=== PATIENT | female | born 1935 | race Caucasian/White ===

== ENCOUNTER 2020-06-30 17:16 | Emergency (ER) | payer MEDICARE, BC ==
[2020-06-30 18:12] VITALS: BP 179/69; PULSE 96
--- NOTE | 2020-06-30 18:33 | EDM.PDOC ---
ED HPI GENERAL MEDICAL PROBLEM - General Chief Complaint: Back Pain or Injury Stated Complaint: [facility] Time Seen by Provider: 06/30/20 18:13 Source of Information: Reports: Patient, RN Notes Reviewed History Limitations: Reports: No Limitations - History of Present Illness INITIAL COMMENTS - FREE TEXT/NARRATIVE: Patient is an 85-year-old female who presents to the ED via [place] [facility] for the evaluation of her mid to upper back pain. Patient was given 100 mcg of fentanyl in route to the ER. Patient states that she fell at home, she does not really remember what happened prior to the injury, but she notes she was not dizzy or lightheaded. Patient does not think she was on the ground long, but she was found by her . She is alert and oriented x4, she knows where she is at, and states "I would like to go home". She does not think she hit her head, she is not complaining of any neck pain. She is complaining mostly of upper back pain between her shoulder blades. Patient's not on any blood thinners. She denies any other sick-like symptoms, fever/chills, cough or shortness of breath, nausea/vomiting/diarrhea. Treatments PARTS ADVISOR: Reports: Other (see below) Other Treatments PARTS ADVISOR: fentanyl Lower Back Pain Score (Numeric/FACES): 10 - Related Data Allergies Allergy/AdvReac Type Severity Reaction Status Date / Time No Known Allergies Allergy Verified 06/30/20 18:12 Home Meds: Home Meds traZODone 50 mg PO DAILY 03/09/16 [History] Hydrocodone/Acetaminophen [Hydrocodone-Acetamin 5-325 mg] 1 each PO Q6H #28 tablet 06/30/20 [Rx] Past Medical History HEENT History: Reports: Cataract, Impaired Vision, Macular Degeneration Other HEENT History: wears eyeglasses Cardiovascular History: Reports: Other (See Below) Other Cardiovascular History: requires carotid endarterectomy--scheduled to see grinder gear on Friday. Gastrointestinal History: Reports: GERD Genitourinary History: Reports: Other (See Below) Other Genitourinary History: over active bladder FAMILY LAW PAR[place]GAL History: Reports: Musculoskeletal History: Reports: Back Pain, Chronic, Fracture, Osteoporosis - Infectious Disease History Infectious Disease History: Reports: Chicken Pox, Measles, Shingles - Past Surgical History HEENT Surgical History: Reports: Cataract Surgery Musculoskeletal Surgical History: Reports: Knee Replacement Social & Family History - Family History Family Medical History: Noncontributory - Tobacco Use Smoking Status *Q: Never Smoker - Caffeine Use Caffeine Use: Reports: Coffee ED ROS GENERAL - Review of Systems Review Of Systems: Comprehensive ROS is negative, except as noted in HPI. ED EXAM, UPPER BACK/NECK PAIN - Physical Exam Exam: See Below Exam Limited By: No Limitations General Appearance: Alert, WD/WN, No Apparent Distress Throat/Mouth Exam: Normal Inspection, Normal Lips, Normal Teeth, Normal Gums, Normal Oropharynx, Normal Voice, No Airway Compromise Head Exam: Atraumatic, Normocephalic Neck Exam: Non-Tender, Full Range of Motion, Normal Alignment, Normal Inspection Nexus Criteria: No: Posterior, Midline Cervical Tenderness, Evidence of Intoxication, Altered Level of Consciousness, Focal Neurological Deficit, Painful Distraction Injuries Cardiovascular/Respiratory: Regular Rate, Rhythm, No M/R/G, Normal Peripheral Pulses, No JVD, Normal Breath Sounds, No Respiratory Distress GI/Abdominal: Normal Bowel Sounds, Soft, Non-Tender, No Distention, No Mass Back Exam: Normal Inspection, Paraspinal Tenderness (she is tender to spine between her shoulder blades mainly) Neurologic: production control supervisor II-XII nml As Tested, No Motor/Sensory Deficits, Alert, Normal Mood/Affect, Oriented x 3 Psychiatric: Normal Affect, Normal Mood Skin Exam: Normal Color, Warm/Dry Course - Vital Signs Last Recorded V/S: Last Vital Signs Temp 99.2 F 06/30/20 18:05 Pulse 96 06/30/20 18:05 Resp 20 06/30/20 18:05 BP 179/69 H 06/30/20 18:05 Pulse Ox 100 06/30/20 18:05 - Orders/Labs/Meds Orders: Active Orders 24 hr Category Date Time Status CBC WITH AUTO DIFF [HEME] Stat Lab 06/30/20 18:30 Ordered Labs: Laboratory Tests 06/30/20 06/30/20 Range/Units 18:55 18:55 WBC 11.75 H (3.98-10.04) K/mm3 RBC 4.02 (3.98-5.22) M/mm3 Hgb 12.2 (11.2-15.7) gm/dl Hct 38.0 (34.1-44.9) % MCV 94.5 (79.4-94.8) fl MCH 30.3 (25.6-32.2) pg MCHC 32.1 L (32.2-35.5) g/dl RDW Std Deviation 46.8 H (36.4-46.3) fL Plt Count 205 (182-369) K/mm3 MPV 9.8 (9.4-12.3) fl Neut % (Auto) 77.9 H (34.0-71.1) % Lymph % (Auto) 13.8 L (19.3-51.7) % Grainger % (Auto) 6.7 (4.7-12.5) % Eos % (Auto) 0.9 (0.7-5.8) Baso % (Auto) 0.3 (0.1-1.2) % Neut # (Auto) 9.14 H (1.56-6.13) K/mm3 Lymph # (Auto) 1.62 (1.18-3.74) K/mm3 Grainger # (Auto) 0.79 H (0.24-0.36) K/mm3 Eos # (Auto) 0.11 (0.04-0.36) K/mm3 Baso # (Auto) 0.04 (0.01-0.08) K/mm3 Sodium 143 (136-145) mEq/L Potassium 4.0 (3.5-5.1) mEq/L Chloride 107 (98-107) mEq/L Carbon Dioxide 25 (21-32) mEq/L Anion Gap 15.0 (5-15) BUN 17 (7-18) mg/dL Creatinine 1.1 H (0.55-1.02) mg/dL Est Cr Clr Drug Dosing TNP Estimated GFR (MDRD) 47 (>60) mL/min BUN/Creatinine Ratio 15.5 (14-18) Glucose 104 (83-115) mg/dL Calcium 8.8 (8.5-10.1) mg/dL Magnesium 1.9 (1.8-2.4) mg/dl Total Bilirubin 0.3 (0.2-1.0) mg/dL AST 25 (15-37) U/L ALT 22 (14-59) U/L Alkaline Phosphatase 53 (46-116) U/L Total Protein 6.9 (6.4-8.2) g/dl Albumin 3.3 L (3.4-5.0) g/dl Globulin 3.6 gm/dL Albumin/Globulin Ratio 0.9 L (1-2) Meds: Medications Discontinued Medications Generic Name Dose Route Start Last Admin Trade Name Gala PRN Reason Stop Dose Admin Hydromorphone HCl 0.5 mg 06/30/20 19:27 Dilaudid IVPUSH 06/30/20 19:28 ONETIME ONE - Re-Assessments/Exams Free Text/Narrative Re-Assessment/Exam: 06/30/20 18:33 Patient presents to the ED for the evaluation of her fall. Basic labs to be obtained, along with a head CT and chest CT for evaluation of injury. 06/30/20 19:27 CT is back, and is negative. The patient's chest CT does demonstrate a compression deformity at T3, age of this is indeterminate. MRI would need to be assessed to look for bone marrow edema. Applied calcified nodules within the lung. Otherwise diffuse emphysematous changes. Departure - Departure Time of Disposition: 19:37 Disposition: Home, Self-Care 01 Condition: Good Clinical Impression: Compression fracture of T3 vertebra Qualifiers: Encounter type: initial encounter Qualified Code(s): S22.030A - Wedge compression fracture of third thoracic vertebra, initial encounter for closed fracture Fall Qualifiers: Encounter type: initial encounter Qualified Code(s): W19.XXXA - Unspecified fall, initial encounter - Discharge Information *PRESCRIPTION DRUG MONITORING PROGRAM REVIEWED*: Yes *COPY OF PRESCRIPTION DRUG MONITORING REPORT IN PATIENT ASHER: No Prescriptions: Hydrocodone/Acetaminophen [Hydrocodone-Acetamin 5-325 mg] 1 each PO Q6H #28 tablet Instructions: Thoracic Spine Fracture, [id number] Forms: ED Department Discharge Additional Instructions: You have been evaluated in the ED for your back pain after your fall. Your CT demonstrated a compression fracture of your t3 vertebrae. You will likely need an MRI of your thoracic spine, to further evaluate the injury. You will need to follow-up with your regular provider or orthopedics to obtain this MRI. Please use ice as tolerated to the affected area. You may take Tylenol 500 mg or ibuprofen 600mg q6 hrs for pain relief. Please do so until you have a tolerable level of pain with activity. Do not exceed 4000mg Tylenol, Do not exceed 3200mg ibuprofen in a 24 hour time period. You were given a prescription for a strong pain medication, hydrocodone/acetaminophen 5/325, please take 1 tab every 6 hours as needed for pain not relieved by Tylenol or ibuprofen alone. Please note this does contain Tylenol in it, so do not take more than 4000 mg in a 24-hour time span. These m edications can be addictive, so please take as few as possible to achieve adequate pain control. These meds can also be quite constipating, recommend that you increase your oral fluid intake and take a stool softener like MiraLAX while taking these medications. Please call Ortho for follow-up and further evaluation, [facility] number in [place] is [phone]. Please call and set up an appointment as soon as possible for further management. Please return to ED if your symptoms should change or worsen. Sepsis Event Note (ED) - Evaluation Sepsis Screening Result: No Definite Risk - Focused Exam Vital Signs: Vital Signs Temp Pulse Resp BP Pulse Ox 06/30/20 18:05 99.2 F 96 20 179/69 H 100 - My Orders Last 24 Hours: My Active Orders 06/30/20 18:30 CBC WITH AUTO DIFF [HEME] Stat - Assessment/Plan Last 24 Hours: My Active Orders 06/30/20 18:30 CBC WITH AUTO DIFF [HEME] Stat
--- NOTE | 2020-06-30 19:09 | CT ---
Head CT Technique: Multiple axial sections through the brain were obtained. Intravenous contrast was not utilized. Comparison: No prior intracranial imaging is available. Findings: Ventricles along the basal cisterns and sulci over the convexities are mildly prominent. Minimal areas of diminished density are noted within portions of periventricular white matter which is most likely due to small vessel ischemic demyelination change. Atherosclerotic calcification is seen within the carotid siphon. No evidence of intracranial hemorrhage. No midline shift or mass-effect is seen. Bone window settings were reviewed. Visualized paranasal sinuses shows minimal mucosal thickening within the posterior ethmoid sinus. Nothing acute is appreciated within the visualized sinuses. Mastoid sinuses show nothing acute. No acute calvarial abnormality is identified. Impression: 1. Senescent change as noted above. 2. No acute intracranial abnormality is appreciated. Diagnostic code #2 This report was dictated in MDT
--- NOTE | 2020-06-30 19:12 | CT ---
CT chest Technique: Multiple axial sections through the chest were obtained. Intravenous contrast was not utilized. Comparison: No prior chest CT is available, no prior chest x-ray is available. Findings: Diffuse emphysematous changes are seen within both lungs. Calcified granuloma is noted within the right upper lung anteriorly measuring 7 mm. Additional calcified nodule is noted within the right lower lung measuring 1.2 cm. 2 adjacent smaller calcified nodules are seen around this larger nodule. Linear areas of scarring is seen within both lung bases. No acute parenchymal change is appreciated. No pleural effusions are noted. Aorta shows diffuse atherosclerotic calcification with no aneurysm. Mediastinum shows no adenopathy. Mild coronary artery calcification is noted. No pericardial thickening is seen. Visualized upper abdominal structures shows small cyst within the left kidney. Calcified granulomas are noted within the spleen. Bone window settings were reviewed. There is a moderate compression deformity being seen within approximately T3. Age of this is indeterminate and could be acute. No other acute finding is seen within the spine. There is deformity of the manubrium compatible with old fracture which appears healed. No definite rib fracture is appreciated. Impression: 1. Compression deformity at T3, age of this is indeterminate. MRI would be needed to look for bone marrow edema if further imaging of this finding is needed. 2. Calcified nodules within the lungs as well as calcified granulomas within the spleen. 3. Diffuse emphysematous changes seen. Linear scarring within both lung bases. 4. No other acute finding is appreciated. Diagnostic code #3 This report was dictated in MDT
[2020-06-30] MEDS ORDERED: HYDROmorphone 0.5 MG/0.5 ML Syringe IVPUSH ONE (19:27)
== END 2020-06-30 20:02 | disposition home or self-care (01) ==
LOC: JD.ED 17:16
DX: S22.039A Unspecified fracture of third thoracic vertebra, initial encounter for closed fracture (principal); Z79.899 Other long term (current) drug therapy; W19.XXXA Unspecified fall, initial encounter; Y92.009 Unspecified place in unspecified non-institutional (private) residence as the place of occurrence of the external cause
CPT/HCPCS: 36415; 70450; 70450-26; 71250; 71250-26; 80053; 83735; 85025; 99283; 99284-25

== ENCOUNTER 2021-05-19 01:43 | Emergency (ER) | payer MEDICARE, BC ==
[2021-05-19 01:57] VITALS: BP 190/75; PULSE 100
[2021-05-19] MEDS ORDERED: HYDROmorphone 0.5 MG/0.5 ML Syringe IVPUSH ONE (02:10)
[2021-05-19] MEDS ORDERED: Ondansetron 4 MG/2 ML SDV IVPUSH ONE (02:10)
[2021-05-19] MEDS ORDERED: Sodium Chloride 0.9% 1,000 ML IV SCH (02:15)
--- NOTE | 2021-05-19 02:16 | EDM.PDOC ---
ED HPI GENERAL MEDICAL PROBLEM - General Chief Complaint: Abdominal Pain Stated Complaint: RT SIDE PAIN Time Seen by Provider: 05/19/21 01:52 Source of Information: Reports: Patient, Family () History Limitations: Reports: Other ( answered most questions, stating that the patient likely has dementia) - History of Present Illness INITIAL COMMENTS - FREE TEXT/NARRATIVE: Mrs. Headley is a very pleasant 86-year-old woman who is now brought to the ED by her , for evaluation of sharp, sudden onset right-sided abdominal pain that began around 20:00 last night. She reports that the pain is constant, and she has not identified any modifiers. She has had some nausea, but no vomiting. No recent constipation or diarrhea. She denies urinary symptoms. The patient did not take any [id number] or home remedies prior to coming to the ED. The patient states that she has had similar, although less severe, symptoms, perhaps 3 times over the past 5 years. She states that she did not seek prior medical evaluation for any of them, as they typically lasted for only about an hour. Here in the ED tonight, the patient's initial BP is found to be significantly elevated at 190/75, otherwise, she is hemodynamically stable, afebrile, saturating 95% on room air. She appears to be uncomfortable, but in no acute distress. Prior to tonight, the patient denies having a recent fever, chills, sore throat, ear pain, nasal or sinus congestion, cough, dyspnea, chest pain, palpitations, nausea, vomiting, constipation, diarrhea, abdominal pain, urinary symptoms, recent weight gain or weight loss, recent bloody bowel movements or black bowel movements, recent joint aches, headaches, or rashes. The patient's PCP is Dr. Helio Goncalves, at the [facility], in [place]. She has not received a COVID vaccination. Right Lower Abdomen Pain Score (Numeric/FACES): 9 - Related Data Allergies Allergy/AdvReac Type Severity Reaction Status Date / Time No Known Allergies Allergy Verified 05/19/21 01:53 Home Meds: Home Meds Memantine [Namenda] 10 mg PO BID 05/19/21 [History] Ondansetron [Zofran ODT] 1 tab PO Q8H PRN #14 tab.dis 05/19/21 [Rx] Tamsulosin [Flomax] 1 cap PO QAM PRN #10 cap.er 05/19/21 [Rx] oxyCODONE HCl/Acetaminophen [Percocet 2.5-325 mg Tablet] 1 - 2 tab PO Q6H PRN #20 tablet 05/19/21 [Rx] Past Medical History HEENT History: Reports: Impaired Vision (blind right eye), Macular Degeneration Gastrointestinal History: Reports: GERD (Untreated. Hx of Schatzki ring.) Musculoskeletal History: Reports: Fracture (C3, right hip? - neither required surgery), Osteoarthritis, Osteoporosis Neurological History: Reports: Other (See Below) (Dementia - suspected, not diagnosed) - Infectious Disease History Infectious Disease History: Reports: Chicken Pox, Measles, Shingles - Past Surgical History HEENT Surgical History: Reports: Cataract Surgery (right only), Oral Surgery (dental extractions), Other (See Below) (Right corneal transplant x 2) GI Surgical History: Reports: Appendectomy, EGD (x 2) Female Surgical History: Reports: Hysterectomy Musculoskeletal Surgical History: Reports: Knee Replacement (right) Social & Family History - Tobacco Use Years of Tobacco use: 65 Packs/Tins Daily: 1 Tobacco Use Comment: Started smoking 1955 - Caffeine Use Caffeine Use: Reports: Coffee - Alcohol Use Alcohol Use History: No - Recreational Drug Use Recreational Drug Use: No - Living Situation & Occupation Living situation: Reports: , with Spouse Occupation: Retired ED ROS GENERAL - Review of Systems Review Of Systems: Comprehensive ROS is negative, except as noted in HPI. Musculoskeletal: Reports: Back Pain (chronic) ED EXAM, RENAL/ - Physical Exam Exam: See Below Exam Limited By: No Limitations General Appearance: Alert, WD/WN, Mild Distress (Appears uncomfortable) Eye Exam: Bilateral Eye: EOMI, Normal Inspection Ears: Normal External Exam, Hearing Grossly Normal Nose: Normal Inspection Throat/Mouth: Normal Inspection, Normal Lips, Normal Voice, No Airway Compromise Head: Atraumatic, Normocephalic Neck: Normal Inspection, Full Range of Motion Respiratory/Chest: No Respiratory Distress, Lungs Clear, Normal Breath Sounds, No Accessory Muscle Use Cardiovascular: Normal Peripheral Pulses, Regular Rate, Rhythm, No Edema, No Gallop, No JVD, No Murmur, No Rub GI/Abdominal: Normal Bowel Sounds, Soft, No Organomegaly, No Distention, No Abnormal Bruit, No Mass, Tender (Mild generalized tenderness, with the greatest tenderness in the far upper right abdomen, just under the lateral right ribs) Back Exam: Normal Inspection, Full Range of Motion, CVA Tenderness (R). No: CVA Tenderness (L) Extremities: Normal Inspection, Normal Range of Motion, No Pedal Edema, Normal Capillary Refill Neurological: Alert, Normal Cognition, No Motor/Sensory Deficits Psychiatric: Normal Affect Skin Exam: Warm, Dry, Intact, Normal Color, No Rash Course - Vital Signs Last Recorded V/S: Last Vital Signs Temp 36.3 C 05/19/21 01:54 Pulse 100 05/19/21 01:54 Resp 17 05/19/21 01:54 BP 190/75 H 05/19/21 01:54 Pulse Ox 95 05/19/21 01:54 - Orders/Labs/Meds Orders: Active Orders 24 hr Category Date Time Status Abdomen Pelvis wo Cont [CT] Stat Exams 05/19/21 03:03 Taken CORONAVIRUS COVID-19 [facility] [MOLEC] Stat Lab 05/19/21 05:17 Stop Req CORONAVIRUS COVID-19 [facility] [MOLEC] Stat Lab 05/19/21 05:50 Ordered CULTURE URINE [MREF] Stat Lab 05/19/21 02:33 Received Sodium Chloride 0.9% [Normal Saline] 1,000 ml Med 05/19/21 02:15 Active IV ASDIRECTED Medication Orders Sodium Chloride (Normal Saline) 1,000 mls @ 100 mls/hr IV ASDIRECTED ARANZA Last Admin: 05/19/21 02:21 Dose: 100 mls/hr Documented by: LINUS Labs: Laboratory Tests 05/19/21 Range/Units 02:33 Urine Color Yellow (Yellow) Urine Appearance Clear (Clear) Urine pH 5.5 (5.0-8.0) Ur Specific [place] 1.020 (1.005-1.030) Urine Protein Trace H (Negative) Urine Glucose (UA) Negative (Negative) Urine Ketones Trace H (Negative) Urine Occult Blood 2+ H (Negative) Urine Nitrite Negative (Negative) Urine Bilirubin Negative (Negative) Urine Urobilinogen 0.2 (0.2-1.0) Ur Leukocyte Esterase 2+ H (Negative) Urine RBC 5-10 H (0-5) /hpf Urine WBC 10-20 H (0-5) /hpf Ur Squamous Epith Cells Not seen (0-5) /hpf Urine Bacteria Rare (FEW) /hpf Urine Mucus Rare (FEW) /hpf Meds: Medications Generic Name Dose Route Start Last Admin Trade Name Gala PRN Reason Stop Dose Admin Sodium Chloride 1,000 mls @ 100 mls/hr 05/19/21 02:15 05/19/21 02:21 Normal Saline IV 100 mls/hr ASDIRECTED ARANZA Administration Discontinued Medications Generic Name Dose Route Start Last Admin Trade Name Gala PRN Reason Stop Dose Admin Hydromorphone HCl 0.5 mg 05/19/21 02:10 05/19/21 02:22 Hydromorphone 0.5 Mg/0.5 Ml Syringe IVPUSH 05/19/21 02:11 0.5 mg ONETIME ONE Administration Ondansetron HCl 4 mg 05/19/21 02:10 05/19/21 02:21 Ondansetron 4 Mg/2 Ml Sdv IVPUSH 05/19/21 02:11 4 mg ONETIME ONE Administration Tamsulosin HCl 0.4 mg 05/19/21 05:44 Tamsulosin 0.4 Mg Cap.Er PO 05/19/21 05:45 ONETIME ONE - Re-Assessments/Exams Free Text/Narrative Re-Assessment/Exam: 05/19/21 02:11 As above, the patient developed sudden-onset sharp right sided abdominal pain, along with nausea, around 20:00 last night. It is constant, and she has not identified any modifiers. No associated vomiting, diarrhea, or urinary symptoms. She reports prior symptoms approximately 3 times over the past 5 years, but they typically lasted only about 1 hour, and she did not seek medical evaluation for any of them. On examination, the patient reports mild generalized abdominal tenderness, with the greatest tenderness in the far upper right abdomen, just under the lateral right ribs. She also has right CVA tenderness, strongly suggesting that her symptoms are due to a ureterolith. I have ordered a urinalysis. If there is blood in the urine, I will order a CT of the abdomen and pelvis without contrast, but if there is no blood in the urine, then I will order a work-up to include blood work and a CT of the abdomen and pelvis with oral and IV contrast. In the meantime, the patient will be given some IV Dilaudid, IV Zofran, and judicious IV fluid. 05/19/21 03:03 The patient's urinalysis is remarkable for 2+ occult blood with 5-10 RBCs, 2+ leukocyte esterase with 10-20 WBCs, nitrate negative with rare bacteria, and no squamous epithelial cells seen. Based on the above, I have ordered a urine culture, however, I am not going to start the patient on antibiotics at this time. I have ordered a CT of the abdomen and pelvis without contrast to evaluate for a right ureterolith. 05/19/21 05:[address] of the abdomen and pelvis without contrast are still pending, however, in my review of the CT, there appears to be a large ureterolith at the right UVJ. If that is the case, the patient may require transfer to [place]. For that reason, I have ordered a swab for the SARS-CoV-2 virus. 05/19/21 05:34 CT of the abdomen and pelvis without contrast is read by Caleb as: 1. 4.9 mm right ureterovesical junction stone with associated moderate right hydroureteronephrosis. 2. Post hysterectomy. 3. Trace nonspecific free pelvic fluid. 05/19/21 05:39 Test results discussed with the patient's (the patient is sleeping). Although large, at 4.9 mm at the UVJ, the patient will likely pass the stone on her own. I will discharge her home with the recommendation that she take OTC ibuprofen around the clock, and I will prescribe some Percocet that she can take for breakthrough pain, along with tamsulosin and Zofran. She should stay adequately hydrated and strain all of her urine. If she continues to have pain after 1 week, she should follow-up with Dr. Mayer in [place]. Departure - Departure Time of Disposition: 05:41 Disposition: Home, Self-Care 01 Condition: Good Clinical Impression: Ureterolithiasis - Discharge Information *PRESCRIPTION DRUG MONITORING PROGRAM REVIEWED*: Not Applicable *COPY OF PRESCRIPTION DRUG MONITORING REPORT IN PATIENT ASHER: Not Applicable Prescriptions: Tamsulosin [Flomax] 1 cap PO QAM PRN #10 cap.er PRN Reason: Pain oxyCODONE HCl/Acetaminophen [Percocet 2.5-325 mg Tablet] 1 - 2 tab PO Q6H PRN #20 tablet PRN Reason: Pain (Severe 7-10) Ondansetron [Zofran ODT] 1 tab PO Q8H PRN #14 tab.dis PRN Reason: Nausea/Vomiting Instructions: Kidney Stones Referrals: Helio Goncalves MD [Ordering Only Provider] - David Mayer MD [Ordering Only Provider] - Forms: ED Department Discharge Additional Instructions: You were seen in the emergency room after developing sudden-onset right sided pain, along with nausea. Work-up in the ER included a urinalysis and a CT of your abdomen and pelvis. Your urinalysis had some blood in it, consistent with a kidney stone, but no sign of an infection. Nevertheless, sample of your urine has been sent for culture. The CT scan found a 4.9 mm stone in your lower right ureter, just above your bladder. Based on the size and location of the stone, you will most likely pass it on your own. We recommend that you stay adequately hydrated. It does not really matter what type of fluid you drink. Strain all of your urine. If you capture the stone, take it to your doctor for analysis. We recommend you take [id number] ibuprofen, 2 to 3 tablets (400-600 mg) up to every 8 hours, with food, [id number], initially, as needed for discomfort. A prescription for the opioid pain reliever Percocet has been provided to you. You may take 1 to 2 tablets of Percocet up to every 6 hours, as needed for pain not relieved by ibuprofen. If you take Percocet, do not drive for 12 hours after taking. Percocet may cause constipation, so consider taking a stool softener. You have been started on the anti-spasm medicine tamsulosin, and a prescription for tamsulosin has been provided to you. Take 1 tablet of tamsulosin every morning, starting tomorrow morning, 05/20/2021, as needed for pain. You have given a prescription for the anti-nausea medicine Zofran ODT. Dissolve 1 tablet of Zofran ODT on your tongue up to every 8 hours, as needed for nausea/vomiting. If you are still having pain after 1 week, please follow-up with the Urologist Dr. David Mayer, in [place]. If any other problems, please do not hesitate to return to the ER. Sepsis Event Note (ED) - Evaluation Sepsis Screening Result: No Definite Risk - Focused Exam Vital Signs: Vital Signs Temp Pulse Resp BP Pulse Ox 05/19/21 01:54 36.3 C 100 17 190/75 H 95 - My Orders Last 24 Hours: My Active Orders 05/19/21 02:15 Sodium Chloride 0.9% [Normal Saline] 1,000 ml IV ASDIRECTED 05/19/21 02:33 CULTURE URINE [MREF] Stat 05/19/21 03:03 Abdomen Pelvis wo Cont [CT] Stat 05/19/21 05:17 CORONAVIRUS COVID-19 [facility] [MOLEC] Stat 05/19/21 05:50 CORONAVIRUS COVID-19 [facility] [MOLEC] Stat - Assessment/Plan Last 24 Hours: My Active Orders 05/19/21 02:15 Sodium Chloride 0.9% [Normal Saline] 1,000 ml IV ASDIRECTED 05/19/21 02:33 CULTURE URINE [MREF] Stat 05/19/21 03:03 Abdomen Pelvis wo Cont [CT] Stat 05/19/21 05:17 CORONAVIRUS COVID-19 [facility] [MOLEC] Stat 05/19/21 05:50 CORONAVIRUS COVID-19 [facility] [MOLEC] Stat
[2021-05-19] MEDS ORDERED: Tamsulosin 0.4 MG Cap.ER PO ONE (05:44)
--- NOTE | 2021-05-19 09:02 | CT ---
CT abdomen and pelvis Technique: Multiple axial sections were obtained from above the dome of the diaphragm inferiorly through the pubic symphysis. Intravenous and oral contrast were not utilized. Study has been performed as a ureteral stone protocol. Reconstructed coronal and sagittal images were obtained. Comparison: No prior abdomen or pelvis imaging is available. Findings: Dilated right renal pelvis and right ureter are seen. These findings are caused by a distal right ureteral calculus measuring approximately 5.5 mm which occurs slightly proximal to the UVJ. No other ureteral calculi are seen. Three nonobstructing calculi are seen within the left kidney with largest measuring approximately 3 mm.. No calculi are seen within the right kidney. Small cyst is noted within the right kidney measuring 1.9 cm and small cyst is noted within the upper pole of the left kidney measuring 1.8 cm. Additional cyst is noted within the mid to lower left kidney measuring 2.2 cm in size. Minimal hyperdense lesion is seen within the upper left kidney measuring 4 mm in size most likely representing a small hemorrhagic cyst. Visualized lung bases show slight basilar scarring and emphysematous change. Noncontrast appearance of the liver shows no discrete abnormality. Spleen size is normal. Spleen contains calcified granulomas. Adrenal gland on the left side is mildly prominent likely representing slight hyperplasia. Lesser findings are seen within the right adrenal gland. Pancreas shows no discrete abnormality. Gallbladder contains no calcified gallstones. Inferior abdominal aorta shows minimal aneurysmal dilatation with AP dimension of about 2.6 cm. Atherosclerotic calcification is seen within the aorta and iliac vessels. No retroperitoneal adenopathy is seen. No mesenteric abnormalities are seen. No pelvic mass or adenopathy is noted. Minimal free fluid is seen within the pelvis. Bone window settings were reviewed which show mild scattered degenerative change within the spine. Sacroiliac joints show nothing acute. Minimal joint space narrowing is noted within both hips. Impression: 1. Obstructing stone within the distal right ureter occurring proximal to the UVJ and measuring 5.5 mm. 2. Several cysts within the kidney with one small hemorrhagic cyst in the left kidney. Three nonobstructing calculi are seen within the left kidney. 3. 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 4. Other findings as noted above which are most likely nonacute. Diagnostic code #3 I minimally disagree with preliminary report from [facility], finalized on 08/14/21, 6:29 AM CDT, code 2
== END 2021-05-19 06:11 | disposition home or self-care (01) ==
LOC: JD.ED 01:43
DX: N13.2 Hydronephrosis with renal and ureteral calculous obstruction (principal); F17.200 Nicotine dependence, unspecified, uncomplicated; Z20.822 Contact with and (suspected) exposure to COVID-19; Z79.899 Other long term (current) drug therapy
CPT/HCPCS: 74176; 81001; 87086; 96374; 96375; 99284; A9270; J1170; J2405; J7030; U0002

== ENCOUNTER 2023-01-27 14:44 | Emergency (ER) | payer BC, MEDICARE ==
[2023-01-27] MEDS ORDERED: Ondansetron 4 MG Tab.DIS PO ONE (15:08)
[2023-01-27 16:34] VITALS: BP 144/89; PULSE 88
== END 2023-01-27 16:25 | disposition home or self-care (01) ==
LOC: JD.ED 14:44
DX: T17.320A Food in larynx causing asphyxiation, initial encounter (principal); F17.210 Nicotine dependence, cigarettes, uncomplicated
CPT/HCPCS: 71046; 99283; A9270

== ENCOUNTER 2023-04-21 03:23 | Emergency (ER) | payer MEDICARE, OTHER ==
[2023-04-21 04:58] LABS: BASOPHILS ABSOLUTE AUTO 0.03 K/mm3 (0.01-0.08); BASOPHILS PERCENT AUTO 0.3 % (0.1-1.2); EOSINOPHILS ABSOLUTE AUTO 0.12 K/mm3 (0.04-0.36); EOSINOPHILS PERCENT AUTO 1.1 (0.7-5.8); HEMATOCRIT 35.4 % (34.1-44.9); HEMOGLOBIN 11.4 gm/dl (11.2-15.7); IMMATURE GRAN ABSOLUTE AUTO 0.03 K/mm3 (0.00-0.10); IMMATURE GRAN PERCENT AUTO 0.3 % (<=1.0); LYMPHOCYTES ABSOLUTE AUTO 1.17 K/mm3 (1.18-3.74); LYMPHOCYTES PERCENT AUTO 10.3 % (19.3-51.7); MEAN CORPUSCULAR HEMOGLOBIN 29.5 pg (25.6-32.2); MEAN CORPUSCULAR HGB CONC 32.2 g/dl (32.2-35.5); MEAN CORPUSCULAR VOLUME 91.5 fl (79.4-94.8); MEAN PLATELET VOLUME 10.1 fl (9.4-12.3); MONOCYTES ABSOLUTE AUTO 0.77 K/mm3 (0.24-0.36); MONOCYTES PERCENT AUTO 6.8 % (4.7-12.5); NEUTROPHILS ABSOLUTE AUTO 9.25 K/mm3 (1.56-6.13); NEUTROPHILS PERCENT AUTO 81.2 % (34.0-71.1); PLATELET COUNT,PLT 247 K/mm3 (182-369); RED BLOOD CELL COUNT 3.87 M/mm3 (3.98-5.22); WHITE BLOOD CELL COUNT,WBC 11.37 K/mm3 (3.98-10.04)
[2023-04-21 05:28] LABS: A/G RATIO 0.5 (1-2); ALBUMIN 2.7 g/dl (3.4-5.0); ANION GAP 10.2 (5-15); BILIRUBIN TOTAL 0.3 mg/dL (0.2-1.0); BUN/CREATININE RATIO 14.2 (14-18); CALCIUM 8.3 mg/dL (8.5-10.1); CREATININE 1.2 mg/dL (0.55-1.02); EST CRCL DRUG DOSING (CG) 28.17 mL/min; POTASSIUM,K 3.2 mEq/L (3.5-5.1); PROTEIN TOTAL,TP 7.8 g/dl (6.4-8.2); TSH 2.954 uIU/mL (0.358-3.74)
[2023-04-21 06:12] LABS: APPEARANCE,URINE SLT CLOUDY (Clear); BILIRUBIN,URINE NEGATIVE (Negative); COLOR,URINE LIGHT YELLOW (Yellow); GLUCOSE,URINE NEGATIVE (Negative); KETONES,URINE NEGATIVE (Negative); LEUKOCYTE ESTERASE,URINE TRACE (Negative); NITRITE,URINE POSITIVE (Negative); OCCULT BLOOD,URINE NEGATIVE (Negative); PROTEIN,URINE NEGATIVE (Negative); UROBILINOGEN,URINE 0.2 (0.2-1.0)
[2023-04-21 06:46] LABS: BACTERIA,URINE MODERATE /hpf (FEW); MUCUS,URINE NOT SEEN /hpf (FEW); RBC,URINE 0-5 /hpf (0-5); SQUAMOUS EPITHELIAL CELLS,UR 0-5 /hpf (0-5)
[2023-04-21] MEDS ORDERED: Furosemide 40 MG/4 ML VIAL IVPUSH ONE (09:32)
[2023-04-21] MEDS ORDERED: Sulfamethoxazole/Trimethoprim 800-160 MG Tab PO ONE (10:08)
[2023-04-21 11:52] VITALS: BP 166/73; PULSE 117
== END 2023-04-21 11:38 | disposition home or self-care (01) ==
LOC: JD.ED 03:23
DX: J81.1 Chronic pulmonary edema (principal); R09.02 Hypoxemia; N39.0 Urinary tract infection, site not specified; M19.90 Unspecified osteoarthritis, unspecified site; Z86.16 Personal history of COVID-19
CPT/HCPCS: 36415; 71045; 71046; 80053; 81001; 83880; 84443; 84484; 85025; 93005; 96374; 99285; A9270; J1940; 93010; 99284

== ENCOUNTER 2023-09-12 18:32 | Inpatient (IN) | payer MEDICARE, OTHER ==
[2023-09-12] MEDS ORDERED: Sodium Chloride 0.9% 10 ML Syringe FLUSH PRN (19:08)
[2023-09-12 19:42] LABS: HEMATOCRIT 38.8 % (37.0-47.0); HEMOGLOBIN 12.8 gm/dl (12.0-16.0); MEAN CORPUSCULAR HEMOGLOBIN 31.2 pg (28.0-32.0); MEAN CORPUSCULAR VOLUME 94.6 fl (83.0-99.0); MEAN PLATELET VOLUME 9.9 fl (9.4-12.3); PLATELET COUNT,PLT 218 K/mm3 (150-400)
[2023-09-12 19:42] LABS: INFLUENZA A NAA NEGATIVE (NEGATIVE); RESPIRATORY SYNCYTIAL VIR NAA NEGATIVE (NEGATIVE)
[2023-09-12 19:46] LABS: CORONAVIRUS COVID-19 NAA POSITIVE (NEGATIVE)
[2023-09-12 19:58] LABS: APPEARANCE,URINE CLEAR (Clear); BILIRUBIN,URINE NEGATIVE (Negative); COLOR,URINE YELLOW (Yellow); GLUCOSE,URINE NEGATIVE (Negative); KETONES,URINE NEGATIVE (Negative); LEUKOCYTE ESTERASE,URINE 1+ (Negative); NITRITE,URINE NEGATIVE (Negative); OCCULT BLOOD,URINE TRACE-LYSED (Negative); PROTEIN,URINE 1+ (Negative); UROBILINOGEN,URINE 0.2 (0.2-1.0)
[2023-09-12 20:01] LABS: INR 1.01; PROTHROMBIN TIME 10.8 SECONDS (9.7-12.0)
[2023-09-12 20:05] LABS: BAND PERCENT MAN 2 % (0-10); BASOPHILS PERCENT MAN 0 (0.1-1.2); EOSINOPHILS PERCENT MAN 0 % (0.7-5.8); LYMPHOCYTES % ATYPICAL MANUAL 0 %; LYMPHOCYTES PERCENT MAN 10 % (20-40); MONOCYTES PERCENT MAN 7 % (2-10); PLATELET COUNT ESTIMATE ADEQUATE
[2023-09-12 20:07] LABS: LACTIC ACID 1.1 mmol/L (0.4-2.0)
[2023-09-12 20:10] LABS: A/G RATIO 0.7 (1-2); ALBUMIN 3.2 g/dl (3.4-5.0); ANION GAP 15.7 (5-15); BILIRUBIN TOTAL 0.2 mg/dL (0.2-1.0); BUN/CREATININE RATIO 19.3 (14-18); C-REACTIVE PROTEIN 0.9 mg/dL (<1.0); CALCIUM 9.2 mg/dL (8.5-10.1); CREATININE 1.5 mg/dL (0.55-1.02); EST CRCL DRUG DOSING (CG) 21.76 mL/min; POTASSIUM,K 4.7 mEq/L (3.5-5.1); PROTEIN TOTAL,TP 7.8 g/dl (6.4-8.2)
[2023-09-12 20:14] LABS: BACTERIA,URINE MANY /hpf (FEW); MUCUS,URINE FEW /hpf (FEW); SQUAMOUS EPITHELIAL CELLS,UR 0-5 /hpf (0-5)
[2023-09-12] MEDS ORDERED: REMDESIVIR 200 MG in Sodium Chloride 0.9% 250 ML IV ONE (20:25)
[2023-09-12] MEDS ORDERED: Dexamethasone 4 MG Tab PO ONE (20:26)
[2023-09-12] MEDS: cefTRIAXone 2 GM in Sodium Chloride 0.9% 100 ML IV ONE ×2 (20:41→22:57)
[2023-09-12] MEDS: Sodium Chloride 0.9% 1,000 ML IV SCH (22:57)
[2023-09-13 05:29] LABS: BASOPHILS PERCENT AUTO 0.6 % (0.0-1.0); HEMATOCRIT 34.6 % (37.0-47.0); HEMOGLOBIN 11.5 gm/dl (12.0-16.0); IMMATURE GRAN ABSOLUTE AUTO 0.04 K/mm3 (0.00-0.05); IMMATURE GRAN PERCENT AUTO 0.7 % (0.0-0.4); LYMPHOCYTES ABSOLUTE AUTO 0.9 K/mm3 (1.0-4.8); LYMPHOCYTES PERCENT AUTO 17.6 % (24.0-44.0); MEAN CORPUSCULAR HEMOGLOBIN 31.3 pg (28.0-32.0); MEAN CORPUSCULAR HGB CONC 33.2 g/dl (32.0-36.0); MEAN PLATELET VOLUME 9.8 fl (9.4-12.3); MONOCYTES ABSOLUTE AUTO 0.2 K/mm3 (0.0-0.8); MONOCYTES PERCENT AUTO 3.4 % (0.0-8.0); NEUTROPHILS ABSOLUTE AUTO 4.2 K/mm3 (1.8-7.7); NEUTROPHILS PERCENT AUTO 77.7 % (41.0-71.0); PLATELET COUNT,PLT 199 K/mm3 (150-400); RED BLOOD CELL COUNT 3.68 M/mm3 (4.10-5.30); WHITE BLOOD CELL COUNT,WBC 5.35 K/mm3 (3.9-11.3)
[2023-09-13 05:55] LABS: ANION GAP 16.7 (5-15); CALCIUM 8.3 mg/dL (8.5-10.1); CREATININE 1.2 mg/dL (0.55-1.02); EST CRCL DRUG DOSING (CG) 25.64 mL/min; POTASSIUM,K 4.7 mEq/L (3.5-5.1)
[2023-09-13] MEDS: Dexamethasone 4 MG Tab PO SCH (06:53)
[2023-09-13] MEDS: Nicotine 14 MG/24 Hr Patch TRDERM SCH (10:02)
[2023-09-13] MEDS: Heparin Sodium 5,000 Units/ML Vial SUBCUT SCH ×2 (11:41→19:28)
[2023-09-13] MEDS: Sodium Chloride 0.9% 1,000 ML IV SCH (12:07)
[2023-09-13] MEDS ORDERED: REMDESIVIR 100 MG in Sodium Chloride 0.9% 250 ML IV SCH (20:00)
[2023-09-13] MEDS ORDERED: cefTRIAXone 2 GM in Sodium Chloride 0.9% 100 ML IV SCH (21:00)
[2023-09-13] MEDS: Memantine 10 MG Tab PO SCH (21:37)
[2023-09-14] MEDS: Sodium Chloride 0.9% 1,000 ML IV SCH (01:35)
[2023-09-14] MEDS: Heparin Sodium 5,000 Units/ML Vial SUBCUT SCH ×2 (04:11→12:25)
[2023-09-14 05:46] LABS: BASOPHILS PERCENT AUTO 0.2 % (0.0-1.0); EOSINOPHILS PERCENT AUTO 0.1 % (0.0-6.0); HEMATOCRIT 32.2 % (37.0-47.0); HEMOGLOBIN 10.7 gm/dl (12.0-16.0); IMMATURE GRAN ABSOLUTE AUTO 0.05 K/mm3 (0.00-0.05); IMMATURE GRAN PERCENT AUTO 0.5 % (0.0-0.4); LYMPHOCYTES ABSOLUTE AUTO 1.9 K/mm3 (1.0-4.8); LYMPHOCYTES PERCENT AUTO 18.2 % (24.0-44.0); MEAN CORPUSCULAR HGB CONC 33.2 g/dl (32.0-36.0); MEAN CORPUSCULAR VOLUME 93.3 fl (83.0-99.0); MEAN PLATELET VOLUME 10.2 fl (9.4-12.3); MONOCYTES ABSOLUTE AUTO 1.1 K/mm3 (0.0-0.8); MONOCYTES PERCENT AUTO 10.6 % (0.0-8.0); NEUTROPHILS ABSOLUTE AUTO 7.3 K/mm3 (1.8-7.7); NEUTROPHILS PERCENT AUTO 70.4 % (41.0-71.0); PLATELET COUNT,PLT 177 K/mm3 (150-400); RED BLOOD CELL COUNT 3.45 M/mm3 (4.10-5.30); WHITE BLOOD CELL COUNT,WBC 10.32 K/mm3 (3.9-11.3)
[2023-09-14 05:59] LABS: A/G RATIO 0.7 (1-2); ALBUMIN 2.4 g/dl (3.4-5.0); ANION GAP 15.8 (5-15); BILIRUBIN TOTAL 0.1 mg/dL (0.2-1.0); CALCIUM 7.4 mg/dL (8.5-10.1); EST CRCL DRUG DOSING (CG) 31.22 mL/min; MAGNESIUM 1.4 mg/dL (1.8-2.4); POTASSIUM,K 3.8 mEq/L (3.5-5.1); PROTEIN TOTAL,TP 5.9 g/dl (6.4-8.2)
[2023-09-14] MEDS: Dexamethasone 4 MG Tab PO SCH (06:23)
[2023-09-14] MEDS: Nicotine 14 MG/24 Hr Patch TRDERM SCH (08:31)
[2023-09-14] MEDS: Memantine 10 MG Tab PO SCH (08:31)
[2023-09-14] MEDS ORDERED: Multivitamin Tab PO SCH (09:00)
[2023-09-14] MEDS ORDERED: Docusate Sodium 100 MG Cap PO SCH (09:00)
[2023-09-14 14:11] VITALS: BP 122/74; PULSE 101
== END 2023-09-14 14:08 | disposition home or self-care (01) | DRG 178 ==
LOC: JD.ED 18:32 → JD.MS 20:27
PROVIDERS: ADMIT Internal Medicine; ATTEND Internal Medicine
PROC: 3E0333Z Introduction of Anti-inflammatory into Peripheral Vein, Percutaneous Approach (ICD-10-PCS; principal; 2023-09-12)
PROC: XW033E5 Introduction of Remdesivir Anti-infective into Peripheral Vein, Percutaneous Approach, New Technology Group 5 (ICD-10-PCS; 2023-09-12)
DX: U07.1 COVID-19 (principal); N18.4 Chronic kidney disease, stage 4 (severe); N30.00 Acute cystitis without hematuria; J44.9 Chronic obstructive pulmonary disease, unspecified; F03.90 Unspecified dementia, unspecified severity, without behavioral disturbance, psychotic disturbance, mood disturbance, and anxiety; K21.9 Gastro-esophageal reflux disease without esophagitis; Z96.659 Presence of unspecified artificial knee joint; F17.210 Nicotine dependence, cigarettes, uncomplicated; M19.90 Unspecified osteoarthritis, unspecified site; M81.0 Age-related osteoporosis without current pathological fracture; Z98.890 Other specified postprocedural states; Z90.49 Acquired absence of other specified parts of digestive tract; Z98.49 Cataract extraction status, unspecified eye; Z90.710 Acquired absence of both cervix and uterus
CPT/HCPCS: 0241U; 36415; 71045; 71045-26; 80048; 80053; 81001; 83605; 83735; 84484; 85007; 85025; 85027; 85610; 86140; 87040; 87086; 87088; 87186; 93005; 93010; 94761; 99223; 99239; 99285; A9270-GY; J0248; J0696; J1644; J3490; J7030; J7050; J8540

== ENCOUNTER 2023-11-04 20:55 | Emergency (ER) | payer MEDICARE ==
[2023-11-04] MEDS ORDERED: Glucagon,Human Recombinant 1 MG Vial IVPUSH ONE (21:29)
[2023-11-04] MEDS ORDERED: Sodium Chloride 0.9% 10 ML Syringe FLUSH PRN (21:29)
[2023-11-04] MEDS ORDERED: Metoclopramide 10 MG/2 ML SDV IVPUSH ONE (21:29)
[2023-11-04 23:15] VITALS: BP 136/74; PULSE 92
== END 2023-11-04 23:14 | disposition home or self-care (01) ==
LOC: JD.ED 20:55
DX: T17.320A Food in larynx causing asphyxiation, initial encounter (principal); J43.9 Emphysema, unspecified; F17.210 Nicotine dependence, cigarettes, uncomplicated; Z86.16 Personal history of COVID-19
CPT/HCPCS: 71046; 96374; 96375; 99284; J1610; J2765; J3490; 99283

== ENCOUNTER 2024-03-21 22:52 | Emergency (ER) | payer MEDICARE ==
[2024-03-21 23:11] VITALS: BP 145/71; PULSE 104
[2024-03-21 23:34] LABS: BASOPHILS PERCENT AUTO 0.5 % (0.0-1.0); EOSINOPHILS ABSOLUTE AUTO 0.1 K/mm3 (0.0-0.4); EOSINOPHILS PERCENT AUTO 1.6 % (0.0-6.0); HEMATOCRIT 35.3 % (37.0-47.0); HEMOGLOBIN 11.2 gm/dl (12.0-16.0); IMMATURE GRAN ABSOLUTE AUTO 0.05 K/mm3 (0.00-0.05); IMMATURE GRAN PERCENT AUTO 0.6 % (0.0-0.4); LYMPHOCYTES ABSOLUTE AUTO 1.4 K/mm3 (1.0-4.8); LYMPHOCYTES PERCENT AUTO 15.9 % (24.0-44.0); MEAN CORPUSCULAR HGB CONC 31.7 g/dl (32.0-36.0); MEAN CORPUSCULAR VOLUME 97.8 fl (83.0-99.0); MEAN PLATELET VOLUME 9.6 fl (9.4-12.3); MONOCYTES ABSOLUTE AUTO 0.8 K/mm3 (0.0-0.8); MONOCYTES PERCENT AUTO 9.2 % (0.0-8.0); NEUTROPHILS ABSOLUTE AUTO 6.4 K/mm3 (1.8-7.7); NEUTROPHILS PERCENT AUTO 72.2 % (41.0-71.0); PLATELET COUNT,PLT 218 K/mm3 (150-400); RED BLOOD CELL COUNT 3.61 M/mm3 (4.10-5.30); WHITE BLOOD CELL COUNT,WBC 8.85 K/mm3 (3.9-11.3)
[2024-03-21] MEDS: Acetaminophen 325 MG Tab PO ONE (23:40)
[2024-03-21 23:55] LABS: A/G RATIO 0.9 (1-2); ALBUMIN 3.4 g/dl (3.4-5.0); ANION GAP 16.6 (5-15); BILIRUBIN TOTAL 0.3 mg/dL (0.2-1.0); BUN/CREATININE RATIO 18.8 (14-18); CALCIUM 8.8 mg/dL (8.5-10.1); CREATININE 1.6 mg/dL (0.55-1.02); EST CRCL DRUG DOSING (CG) 21.75 mL/min; POTASSIUM,K 4.6 mEq/L (3.5-5.1)
[2024-03-22] MEDS: Morphine 2 MG/ML SYRINGE IVPUSH ONE (01:06)
[2024-03-22] MEDS: HYDROmorphone 0.5 MG/0.5 ML Syringe IVPUSH ONE (07:14)
[2024-03-22] MEDS: Sodium Chloride 0.9% 1,000 ML IV ONE (07:21)
== END 2024-03-22 08:06 ==
LOC: JD.ED 22:52
DX: S72.144A Nondisplaced intertrochanteric fracture of right femur, initial encounter for closed fracture (principal); Z86.16 Personal history of COVID-19; Z90.49 Acquired absence of other specified parts of digestive tract; Z90.710 Acquired absence of both cervix and uterus; J44.9 Chronic obstructive pulmonary disease, unspecified; N18.9 Chronic kidney disease, unspecified; W18.30XA Fall on same level, unspecified, initial encounter
CPT/HCPCS: 36415; 70450; 72125; 73502; 73552; 80053; 85025; 86850; 86870; 86900; 86901; A9270; C1758; J1170; J2270; J7030; 96374; 96375; 99284; 99285-25

== ENCOUNTER 2024-04-06 10:42 | Inpatient (IN) | payer MEDICARE ==
[2024-04-06] MEDS ORDERED: Sodium Chloride 0.9% 10 ML Syringe FLUSH PRN (10:49)
[2024-04-06] MEDS: fentaNYL 100 MCG/2 ML SDV IVPUSH ONE (11:10)
[2024-04-06] MEDS: Midazolam 1 MG/ML 2 ML SDV IVPUSH ONE (11:11)
[2024-04-06] MEDS: Sodium Chloride 0.9% 1,000 ML IV ONE (11:14)
[2024-04-06] MEDS: Diltiazem 25 MG/5 ML SDV IVPUSH ONE (11:17)
[2024-04-06 11:20] LABS: BASE EXCESS ARTERIAL -8.1 (-2-2.0); BICARBONATE,ARTERIAL 16.7 meq/L (22.0-26.0); O2 SATURATION ARTERIAL 94.9 % (96.0-97.0); PCO2 ARTERIAL 33.3 mmHg (35.0-45.0)
[2024-04-06 11:34] LABS: BASOPHILS ABSOLUTE AUTO 0.2 K/mm3 (0.0-0.2); BASOPHILS PERCENT AUTO 0.6 % (0.0-1.0); EOSINOPHILS PERCENT AUTO 0.1 % (0.0-6.0); HEMATOCRIT 33.5 % (37.0-47.0); HEMOGLOBIN 10.7 gm/dl (12.0-16.0); IMMATURE GRAN ABSOLUTE AUTO 0.24 K/mm3 (0.00-0.05); IMMATURE GRAN PERCENT AUTO 0.9 % (0.0-0.4); LYMPHOCYTES ABSOLUTE AUTO 0.9 K/mm3 (1.0-4.8); LYMPHOCYTES PERCENT AUTO 3.6 % (24.0-44.0); MEAN CORPUSCULAR HEMOGLOBIN 30.7 pg (28.0-32.0); MEAN CORPUSCULAR HGB CONC 31.9 g/dl (32.0-36.0); MEAN CORPUSCULAR VOLUME 96.3 fl (83.0-99.0); MEAN PLATELET VOLUME 9.9 fl (9.4-12.3); MONOCYTES ABSOLUTE AUTO 1.4 K/mm3 (0.0-0.8); MONOCYTES PERCENT AUTO 5.1 % (0.0-8.0); NEUTROPHILS ABSOLUTE AUTO 23.7 K/mm3 (1.8-7.7); NEUTROPHILS PERCENT AUTO 89.7 % (41.0-71.0); NRBC ABSOLUTE 0.02 (0.00-0.02); NRBC PERCENT 0.1 % (0.0-0.2); PLATELET COUNT,PLT 623 K/mm3 (150-400); RED BLOOD CELL COUNT 3.48 M/mm3 (4.10-5.30); WHITE BLOOD CELL COUNT,WBC 26.38 K/mm3 (3.9-11.3)
[2024-04-06] MEDS: methylPREDNISolone Sodium Succinate 125 MG/2 ML SDV IVPUSH ONE (11:39)
[2024-04-06] MEDS ORDERED: Diltiazem 125 MG in Sodium Chloride 0.9% 100 ML IV SCH (11:45)
[2024-04-06 11:47] LABS: INR 1.35
[2024-04-06] MEDS: Diltiazem 125 MG in Sodium Chloride 0.9% 100 ML IV SCH (11:56)
[2024-04-06 12:03] LABS: A/G RATIO 0.4 (1-2); ALANINE AMINOTRANSFERASE,ALT 20 U/L (14-59); ALKALINE PHOSPHATASE 57 U/L (46-116); ASPARTATE AMNIOTRANSFERASE,AST 37 U/L (15-37); BILIRUBIN TOTAL 0.5 mg/dL (0.2-1.0); BLOOD UREA NITROGEN,BUN 55 mg/dL (7-18); BUN/CREATININE RATIO 23.9 (14-18); CALCIUM 8.9 mg/dL (8.5-10.1); CARBON DIOXIDE,CO2 19 mEq/L (21-32); CHLORIDE,CL 96 mEq/L (98-107); CREATININE 2.3 mg/dL (0.55-1.02); EST CRCL DRUG DOSING (CG) 11.74 mL/min; ESTIMATED GFR 20 mL/min (>60); GLUCOSE RANDOM 134 mg/dL (70-99); MAGNESIUM 1.9 mg/dL (1.8-2.4); PROTEIN TOTAL,TP 7.6 g/dl (6.4-8.2); SODIUM,NA 136 mEq/L (136-145); TROPONIN I HIGH SENSITIVITY 35 pg/mL (<=51)
[2024-04-06 12:05] LABS: C-REACTIVE PROTEIN > 25.00 mg/dL (<0.30)
[2024-04-06] MEDS: cefTRIAXone 2 GM in Sodium Chloride 0.9% 100 ML IV ONE (12:52)
[2024-04-06] MEDS: Sodium Chloride 0.9% 500 ML IV ONE ×2 (13:12→16:19)
[2024-04-06] MEDS: Piperacillin/Tazobactam 4.5 GM in Sodium Chloride 0.9% 100 ML IV ONE (14:05)
[2024-04-06] MEDS ORDERED: Ondansetron 4 MG/2 ML SDV IV PRN (14:19)
[2024-04-06] MEDS ORDERED: Docusate Sodium 100 MG Cap PO PRN (14:19)
[2024-04-06] MEDS ORDERED: Polyethylene Glycol 3350 Powder 17 GM Packet PO PRN (14:19)
[2024-04-06] MEDS ORDERED: Acetaminophen 325 MG Tab PO PRN (14:19)
[2024-04-06] MEDS ORDERED: Piperacillin/Tazobactam 4.5 GM in Sodium Chloride 0.9% 100 ML IV SCH (14:30)
[2024-04-06 14:32] LABS: SLIDE REVIEW ABNORMAL SMEAR
[2024-04-06] MEDS ORDERED: Haloperidol Lactate 5 MG/ML SDV IVPUSH PRN (14:32)
[2024-04-06 14:46] LABS: APPEARANCE,URINE CLEAR (Clear); BILIRUBIN,URINE NEGATIVE (Negative); COLOR,URINE YELLOW (Yellow); GLUCOSE,URINE NEGATIVE (Negative); KETONES,URINE NEGATIVE (Negative); LEUKOCYTE ESTERASE,URINE NEGATIVE (Negative); NITRITE,URINE NEGATIVE (Negative); OCCULT BLOOD,URINE NEGATIVE (Negative); PH,URINE 5.5 (5.0-8.0); PROTEIN,URINE 2+ (Negative); UROBILINOGEN,URINE 0.2 (0.2-1.0)
[2024-04-06] MEDS: Potassium Chloride 10 MEQ in Premix Bag 1 BAG IV SCH (14:59)
[2024-04-06] MEDS: Pantoprazole 40 MG Vial IVPUSH SCH (15:03)
[2024-04-06] MEDS: LORazepam 2 MG/ML SDV IVPUSH ONE ×2 (15:03→16:15)
[2024-04-06] MEDS: Heparin Sodium 5,000 Units/ML Vial IVPUSH ONE (15:18)
[2024-04-06 15:29] LABS: BACTERIA,URINE MANY /hpf (FEW); MUCUS,URINE FEW /hpf (FEW); RBC,URINE 0-5 /hpf (0-5); WBC,URINE 0-5 /hpf (0-5)
[2024-04-06] MEDS: Sodium Chloride 0.9% 1,000 ML IV SCH (15:30)
[2024-04-06] MEDS: Midazolam 1 MG/ML 2 ML SDV ONE (15:30)
[2024-04-06] MEDS: fentaNYL 100 MCG/2 ML SDV ONE (15:30)
[2024-04-06] MEDS: Heparin Sodium/D5W 25,000 UNITS/500 ML BAG IV SCH (15:32)
[2024-04-06 15:45] LABS: PHOSPHORUS 4.9 mg/dL (2.6-4.7); TSH 0.923 uIU/mL (0.358-3.74)
[2024-04-06 16:33] LABS: BASE EXCESS ARTERIAL -12.7 (-2-2.0); BICARBONATE,ARTERIAL 15.8 meq/L (22.0-26.0); O2 SATURATION ARTERIAL 92.5 % (96.0-97.0); PCO2 ARTERIAL 51.6 mmHg (35.0-45.0)
[2024-04-06] MEDS: Levalbuterol HCl 1.25 MG/3 ML Neb NEB SCH (17:21)
[2024-04-06] MEDS: Nystatin Susp 100,000 Unit/ML 5 ML UD Cup PO SCH (17:33)
[2024-04-06] MEDS: Sodium Bicarbonate 8.4% 50 MEQ/50 ML Syringe IVPUSH ONE ×2 (17:33)
[2024-04-06] MEDS: Morphine 2 MG/ML SYRINGE IVPUSH ONE (17:40)
[2024-04-06] MEDS: Magnesium Sulfate/Water 4 GM in Premix Bag 1 BAG IV ONE (17:41)
[2024-04-06 18:39] LABS: ANION GAP 20.6 (5-15); BUN/CREATININE RATIO 28.8 (14-18); CREATININE 1.7 mg/dL (0.55-1.02); EST CRCL DRUG DOSING (CG) 17.35 mL/min; POTASSIUM,K 3.6 mEq/L (3.5-5.1)
[2024-04-06 18:59] LABS: CORONAVIRUS COVID-19 NAA NEGATIVE (NEGATIVE); INFLUENZA A NAA NEGATIVE (NEGATIVE); RESPIRATORY SYNCYTIAL VIR NAA NEGATIVE (NEGATIVE)
[2024-04-06 19:00] LABS: LACTIC ACID 7.3 mmol/L (0.4-2.0)
[2024-04-06] MEDS: Ipratropium 0.02% 0.5 MG/2.5 ML Neb Soln NEB SCH (19:47)
[2024-04-06 19:55] LABS: BASE EXCESS ARTERIAL -6.6 (-2-2.0); BICARBONATE,ARTERIAL 20.2 meq/L (22.0-26.0); PCO2 ARTERIAL 50.2 mmHg (35.0-45.0)
[2024-04-06] MEDS: LORazepam 2 MG/ML SDV IVPUSH PRN ×2 (20:25→22:24)
[2024-04-06] MEDS ORDERED: HYDROmorphone 0.5 MG/0.5 ML Syringe IVPUSH PRN (20:46)
[2024-04-06] MEDS: Sodium Chloride 0.9% 250 ML ONE (22:35)
[2024-04-06] MEDS: Lactated Ringers 500 ML IV ONE (22:36)
[2024-04-06] MEDS: Morphine 2 MG/ML SYRINGE IVPUSH PRN (23:23)
[2024-04-07] MEDS ORDERED: Piperacillin/Tazobactam 4.5 GM in Sodium Chloride 0.9% 100 ML IV SCH (02:00)
[2024-04-07 09:59] VITALS: BP 115/41; PULSE 97
[2024-04-07 11:46] LABS: BORDETELLA PARAPERT IS1001 Not Detected (Not Detected)
[2024-04-07] MEDS ORDERED: Atropine 1% Ophth Soln 5 ML Bottle SL PRN (13:54)
[2024-04-07] MEDS ORDERED: Atropine 1% Ophth Soln 5 ML Bottle SL SCH (14:00)
[2024-04-07] MEDS ORDERED: VANCOmycin 500 MG/100 ML 500 MG in Premix Bag 1 BAG IV SCH (16:00)
== END 2024-04-07 23:23 | disposition expired | DRG 871 ==
LOC: JD.ED 10:42 → JD.ICU 14:16
PROVIDERS: ADMIT Student in an Organized Health Care Education/Training Program; ATTEND Student in an Organized Health Care Education/Training Program
PROC: 5A2204Z Restoration of Cardiac Rhythm, Single (ICD-10-PCS; principal; 2024-04-06)
PROC: 3E03329 Introduction of Other Anti-infective into Peripheral Vein, Percutaneous Approach (ICD-10-PCS; 2024-04-06)
PROC: 4A133R1 Monitoring of Arterial Saturation, Peripheral, Percutaneous Approach (ICD-10-PCS; 2024-04-06)
PROC: 5A09357 Assistance with Respiratory Ventilation, Less than 24 Consecutive Hours, Continuous Positive Airway Pressure (ICD-10-PCS; 2024-04-06)
DX: A41.9 Sepsis, unspecified organism (principal); J18.9 Pneumonia, unspecified organism; J96.01 Acute respiratory failure with hypoxia; R65.21 Severe sepsis with septic shock; N17.9 Acute kidney failure, unspecified; J44.0 Chronic obstructive pulmonary disease with (acute) lower respiratory infection; F03.B18 Unspecified dementia, moderate, with other behavioral disturbance; R64 Cachexia; E87.20 Acidosis, unspecified; N18.4 Chronic kidney disease, stage 4 (severe); F03.B4 Unspecified dementia, moderate, with anxiety; Z68.1 Body mass index [BMI] 19.9 or less, adult; Z66 Do not resuscitate; Z51.5 Encounter for palliative care; K21.9 Gastro-esophageal reflux disease without esophagitis; I48.91 Unspecified atrial fibrillation; D63.1 Anemia in chronic kidney disease; E87.6 Hypokalemia; E88.09 Other disorders of plasma-protein metabolism, not elsewhere classified; R34 Anuria and oliguria; S72.91XD Unspecified fracture of right femur, subsequent encounter for closed fracture with routine healing; F17.210 Nicotine dependence, cigarettes, uncomplicated; Z98.49 Cataract extraction status, unspecified eye; Z86.19 Personal history of other infectious and parasitic diseases; Z86.16 Personal history of COVID-19; Z90.49 Acquired absence of other specified parts of digestive tract; Z79.01 Long term (current) use of anticoagulants; Z90.710 Acquired absence of both cervix and uterus; Z96.659 Presence of unspecified artificial knee joint; Z79.899 Other long term (current) drug therapy; Z98.890 Other specified postprocedural states; W19.XXXD Unspecified fall, subsequent encounter
CPT/HCPCS: 0241U; 36600; 80048; 82803; 83605; 84100; 84145; 84443; 85379; 87070; 87486; 87581; 87633; 87641; 94640; 94660; 36415; 71045; 71045-26; 80053; 81001; 83735; 83880; 84484; 85025; 85610; 85730; 86140; 87040; 87077; 87154; 87186; 87899; 92960; 93005; 93010; 96361; 96365; 96366; 96368; 96375; 96376; 99285; 99285-25; A9270-GY; C9113; J0696; J1644; J2060; J2250; J2270; J2543; J2919; J3010; J3370; J3475; J3480; J3490; J7030; J7050; J7612-GY